=== PATIENT | male | born 1995 ===

== ENCOUNTER 2021-07-14 08:51 | Emergency (ER) | payer SELFPAY ==
[~2021-07-14] VITALS: Ht 180.3 cm; Wt 91.7 kg
[2021-07-14 08:52] VITALS: BP 135/76
[2021-07-14] MEDS ORDERED: GABA-1171 PO (08:57)
[2021-07-14] MEDS ORDERED: NALT50TA4 PO ×2 (08:57)
== END 2021-07-14 10:40 | disposition left against medical advice (07) ==
LOC: M ED 08:51
DX: Z53.29 Procedure and treatment not carried out because of patient's decision for other reasons (principal)